=== PATIENT | male | born 1955 | race American Indian/Alaskan Native ===

== ENCOUNTER 2020-02-16 19:39 | Inpatient (IN) | payer MEDICARE, OTHER ==
[2020-02-16] MEDS ORDERED: ASPIRIN 81 MG TAB CHEW PO ONE (21:02)
--- NOTE | 2020-02-16 21:08 | Emergency Department Report ---
ED Palpitations HPI - General Chief Complaint: Dizziness Stated Complaint: DIZZINESS Time Seen by Provider: 02/16/20 20:29 Source: patient, EMS Mode of arrival: Stretcher Limitations: No Limitations - History of Present Illness Initial Comments: Patient is 64 years old male with history of congestive heart failure, defibrillator, hypertension and diabetes. Patient presented to the ER via EMS from home after patient stated that he had an episode of palpitation and his defibrillator discharge and shocked him. Patient stated that when he started having the palpitation he became dizzy and shortness of breath. Patient stated that defibrillator was placed last year by Dr. Srinivasan. Patient is currently denying any chest pain, shortness of breath or palpitation. Patient also denied any fever or chills no history of drug abuse. MD Complaint: rapid heart beat, palpitations -: Sudden Context: occured during rest, AICD discharge Arrythmia History: AICD Associated Symptoms: shortness of breath, syncope - Related Data Home Medications Medication Instructions Recorded Confirmed Last Taken amLODIPine 10 mg PO DAILY 06/25/13 04/12/15 06/25/13 Aspirin [Aspirin BABY CHEW TAB] 81 mg PO QDAY 11/09/13 04/12/15 Unknown Colchicine 0.6 mg PO DAILY PRN 11/09/13 04/12/15 Unknown Ferrous Sulfate [Feosol 325mg] 65 mg PO TID 11/09/13 04/12/15 Unknown Furosemide [Lasix] 40 mg PO BID 11/09/13 04/12/15 Unknown lisinopriL [Zestril TAB] 20 mg PO QDAY 11/09/13 04/12/15 Unknown Previous Rx's Medication Instructions Recorded Last Taken Type Insulin Glargine,Hum.rec.anlog 15 unit SQ QHS #30 ml 11/13/13 Unknown Rx [Lantus Solostar] metFORMIN [Glucophage] 500 mg PO BIDDIAB #60 tablet 11/13/13 Unknown Rx Benzonatate [Tessalon Perles] 200 mg PO Q8HR PRN #20 capsule 04/14/15 Unknown Rx Dabigatran [Pradaxa] 150 mg PO BID #60 capsule 04/14/15 Unknown Rx carvediloL [Coreg] 25 mg PO Q12HR #60 tablet 04/14/15 Unknown Rx levoFLOXacin [Levaquin TAB] 500 mg PO QDAY #4 tablet 04/14/15 Unknown Rx Allergies Allergy/AdvReac Type Severity Reaction Status Date / Time No Known Allergies Allergy Verified 04/12/15 08:45 ED Review of Systems ROS: Stated complaint: DIZZINESS Other details as noted in HPI Comment: All other systems reviewed and negative Constitutional: denies: chills, fever Respiratory: shortness of breath. denies: cough, SOB with exertion, wheezing Cardiovascular: palpitations. denies: chest pain, dyspnea on exertion, orthopnea Gastrointestinal: denies: abdominal pain, nausea, vomiting Musculoskeletal: denies: back pain Neurological: denies: headache, weakness, numbness, paresthesias, confusion, abnormal gait ED Past Medical Hx - Past Medical History Previous Medical History?: Yes Hx Hypertension: Yes (coreg, lisinopril) Hx Heart Attack/AMI: No Hx Congestive Heart Failure: Yes Hx Diabetes: Yes (NEW [place]ET) Hx Asthma: No Hx COPD: No - Surgical History Past Surgical History?: Yes Hx Open Heart Surgery: Yes Hx Appendectomy: Yes - Social History Smoking Status: Never Smoker Substance Use Type: None - Medications Home Medications: Home Medications Medication Instructions Recorded Confirmed Last Taken Type amLODIPine 10 mg PO DAILY 06/25/13 04/12/15 06/25/13 History Aspirin [Aspirin BABY CHEW TAB] 81 mg PO QDAY 11/09/13 04/12/15 Unknown History Colchicine 0.6 mg PO DAILY PRN 11/09/13 04/12/15 Unknown History Ferrous Sulfate [Feosol 325mg] 65 mg PO TID 11/09/13 04/12/15 Unknown History Furosemide [Lasix] 40 mg PO BID 11/09/13 04/12/15 Unknown History lisinopriL [Zestril TAB] 20 mg PO QDAY 11/09/13 04/12/15 Unknown History Insulin Glargine,Hum.rec.anlog 15 unit SQ QHS #30 ml 11/13/13 04/12/15 Unknown Rx [Lantus Solostar] metFORMIN [Glucophage] 500 mg PO BIDDIAB #60 tablet 11/13/13 04/12/15 Unknown Rx Benzonatate [Tessalon Perles] 200 mg PO Q8HR PRN #20 capsule 04/14/15 Unknown Rx Dabigatran [Pradaxa] 150 mg PO BID #60 capsule 04/14/15 Unknown Rx carvediloL [Coreg] 25 mg PO Q12HR #60 tablet 04/14/15 Unknown Rx levoFLOXacin [Levaquin TAB] 500 mg PO QDAY #4 tablet 04/14/15 Unknown Rx ED Physical Exam - General Limitations: No Limitations General appearance: alert, in no apparent distress - Head Head exam: Present: atraumatic, normocephalic, normal inspection - Eye Eye exam: Present: normal appearance - ENT ENT exam: Present: normal exam, normal orophraynx, mucous membranes moist - Neck Neck exam: Present: normal inspection, full ROM. Absent: tenderness, meningismus, lymphadenopathy, thyromegaly - Respiratory Respiratory exam: Present: normal lung sounds bilaterally - Cardiovascular Cardiovascular Exam: Present: irregular rhythm, normal heart sounds - GI/Abdominal GI/Abdominal exam: Present: soft, normal bowel sounds. Absent: distended, tenderness, guarding, rebound, rigid, organomegaly, mass, bruit, pulsatile mass, hernia - Back Exam Back exam: Present: normal inspection, full ROM. Absent: CVA tenderness (R), CVA tenderness (L) - Neurological Exam Neurological exam: Present: alert, oriented X3, CN II-XII intact, normal gait, reflexes normal - Psychiatric Psychiatric exam: Present: normal mood - Skin Skin exam: Present: warm, intact, normal color ED Course Vital Signs 02/16/20 19:55 Temperature 98.6 F Pulse Rate 92 H Respiratory 14 Rate Blood Pressure 154/96 [Left] O2 Sat by Pulse 99 Oximetry ED Medical Decision Making - Lab Data Result diagrams: 02/16/20 21:18 02/16/20 21:17 - EKG Data -: EKG Interpreted by Nj - EKG Data 02/16/20 22:25 Atrial fibrillation with a heart rate of 82 - Radiology Data Radiology results: report reviewed - Medical Decision Making Patient is 64 years old male with history of congestive heart failure, defibrillator, hypertension and diabetes. Patient presented to the ER via EMS from home after patient stated that he had an episode of palpitation and his defibrillator discharge and shocked him. Patient stated that when he started having the palpitation he became dizzy and shortness of breath. Patient stated that defibrillator was placed last year by Dr. Srinivasan. Patient is currently denying any chest pain, shortness of breath or palpitation. Patient also denied any fever or chills no history of drug abuse. Patient remained stable in the ER. EKG is unremarkable except for atrial fibrillation which is chronic. Labs reviewed and is unremarkable except for elevated Bnp. I discussed the patient with Dr. Carrasquillo, steward/stewardess tourist class on-call and he advised to start patient on amiodarone drip and he will be following up with the patient. I discussed the patient with Dr. Elkins, he agreed to admit the patient to medical service for further management. Critical Care Time: Yes Critical care time in (mins) excluding proc time.: 30 Critical care attestation.: If time is entered above; I have spent that time in minutes in the direct care of this critically ill patient, excluding procedure time. ED Disposition Clinical Impression: Defibrillator discharge, Palpitation Disposition: -09 OP ADMIT IP TO THIS HOSP Is pt being admited?: Yes Condition: Stable Referrals: PRIMARY CARE, [Primary Care Provider] - 3-5 Days
[2020-02-16 21:38] LABS: Basophils % (Auto) 0.5 % (0.0-1.8); Eosinophils % (Auto) 0.4 % (0.0-4.3); Hemoglobin 13.6 gm/dl (11.8-15.2); Lymphocytes # (Auto) 0.6 K/mm3 (1.2-5.4); Lymphocytes % (Auto) 11.1 % (13.4-35.0); Mean Corpuscular HGB Conc 33 % (32-34); Mean Corpuscular Volume 88 fl (84-94); Monocytes # (Auto) 0.5 K/mm3 (0.0-0.8); Monocytes % (Auto) 8.3 % (0.0-7.3); Platelet Count 127 K/mm3 (140-440); Red Blood Count 4.63 M/mm3 (3.65-5.03); Red Cell Distribution Width 14.9 % (13.2-15.2)
[2020-02-16 21:48] LABS: INR 1.32 (0.87-1.13)
[2020-02-16 21:52] LABS: Albumin 4.2 g/dL (3.9-5); Bilirubin,Direct 0.4 mg/dL (0-0.2)
[2020-02-16 21:54] LABS: BUN/Creatinine Ratio 16; Blood Urea Nitrogen 18 mg/dL (9-20); Calcium 9.3 mg/dL (8.4-10.2); Hemolysis Index 9
--- NOTE | 2020-02-16 22:08 | XRay Report ---
CHEST 1 VIEW INDICATION / CLINICAL INFORMATION: MAIN. Chest pain COMPARISON: 04/12/2015 FINDINGS: SUPPORT DEVICES: Left chest wall cardiac device with its tip projecting over the right ventricle. HEART / MEDIASTINUM: Enlarged cardiac silhouette Sternotomy wires are stable. LUNGS / PLEURA: Mild central pulmonary vascular congestion. Left lung base atelectasis. No confluent infiltrate. No pneumothorax. ADDITIONAL FINDINGS: Elevation of the left diaphragm. IMPRESSION: 1. Interval placement of left chest wall cardiac device with its tip over the right ventricle. 2. Stable cardiac enlargement with central pulmonary vascular congestion. 3. Interval development of left lung base atelectasis and elevation of left hemidiaphragm. Signer Name: Ramiro Ro MD Signed: 02/16/2020 10:03 PM Workstation Name: [id number]
[2020-02-16] MEDS ORDERED: AMIODARONE 900 MG in DEXTROSE 5% IN WATER 482 ML IV SCH (23:00)
[2020-02-16] MEDS ORDERED: ACETAMINOPHEN 325 MG TAB PO PRN (23:41)
[2020-02-17] MEDS ORDERED: HEPARIN 5,000 UNIT/1 ML VIAL ONE ×2 (00:29→10:10)
[2020-02-17] MEDS: HEPARIN 5,000 UNIT/1 ML VIAL SUB-Q SCH ×3 (00:31→22:59)
[2020-02-17 01:28] LABS: Creatine Kinase MB 2.8 ng/mL (0.0-4.0)
--- NOTE | 2020-02-17 04:42 | History and Physical Report ---
History of Present Illness Date of examination: 02/16/20 Date of admission: 02/16/20 22:19 Chief complaint: PALPITAION AND FIRING OF DEFIBRILATOR History of present illness: 64 year old male who presented to the ER following the firing of his defibrilator after he had palpitation with dizziness, shortness of breath and near syncope. There is no chest pain , fever, chills, cough ,nausea or vomiting. At the time patient reached the ED symptom stopped Past History Past Medical History: diabetes, heart failure, hypertension Past Surgical History: appendectomy, Other (OPEN HEART SURGERY, DEFIBRILLATOR PLACEMENT) Social history: no significant social history Family history: no significant family history Medications and Allergies Allergies Allergy/AdvReac Type Severity Reaction Status Date / Time No Known Allergies Allergy Verified 04/12/15 08:45 Home Medications Medication Instructions Recorded Confirmed Last Taken Type Aspirin [Aspirin BABY CHEW TAB] 81 mg PO QDAY 02/16/20 02/16/20 Unknown History Clopidogrel [Plavix] 75 mg PO QDAY 02/16/20 02/16/20 Unknown History Colchicine 0.6 mg PO QDAY 02/16/20 02/16/20 Unknown History Furosemide [Lasix TAB] 40 mg PO QDAY 02/16/20 02/16/20 Unknown History Losartan [Cozaar] 50 mg PO QDAY 02/16/20 02/16/20 Unknown History Potassium Chloride 10 meq PO QDAY 02/16/20 02/16/20 Unknown History Warfarin [Coumadin] 5 mg PO QDAY 02/16/20 02/16/20 Unknown History amLODIPine [Norvasc] 5 mg PO DAILY 02/16/20 02/16/20 Unknown History carvediloL [Coreg] 25 mg PO QDAY 02/16/20 02/16/20 Unknown History Active Meds: Active Medications Acetaminophen (Tylenol) 650 mg PO Q4H PRN PRN Reason: Fever >101 Heparin Sodium (Porcine) (Heparin) 5,000 unit SUB-Q Q12HR [facility] Last Admin: 02/17/20 00:31 Dose: 5,000 unit Documented by: Amiodarone HCl 900 mg/ (Dextrose) 500 mls @ 33.333 mls/hr IV DIRECT [facility]; Protocol Last Admin: 02/16/20 23:25 Dose: 1 mg/min, 33.333 mls/hr Documented by: Review of Systems Constitutional: weakness, malaise, no weight loss, no weight gain, no fever, no chills, no sweats, no night sweats, no fatigue Eyes: bilateral: other (NO BILATERAL EYE SYMPTOM) Ears, nose, mouth and throat: no ear pain, no ear discharge Cardiovascular: palpitations, lightheadedness, other (NEAR SYNCOPE), no chest pain, no orthopnea, no rapid/irregular heart beat, no edema Respiratory: shortness of breath, no cough, no hemoptysis, no dyspnea on exertion, no congestion, no wheezing Gastrointestinal: no abdominal pain, no nausea, no vomiting, no diarrhea, no constipation, no change in bowel habits, no hematemesis, no melena, no hematochezia Genitourinary Male: no hematuria, no urinary frequency Rectal: no pain, no itching Musculoskeletal: no neck stiffness, no neck pain, no shooting arm pain, no arm numbness/tingling, no low back pain, no shooting leg pain, no leg numbness/tingling, no hot joints, no muscle weakness, no muscle cramps Integumentary: no rash, no pruritis, no redness, no sores, no wounds, no jaundice, no boils, no lesions, no darkening of skin, no depigmentation, no acne, no striae Neurological: weakness, no parathesias, no numbness, no seizures, no syncope, no tremors, no ataxia, no vertigo, no headaches, no convulsions, no aphasia, no change in speech, no change in mentation, no confusion, no memory loss, no motor disturbance Psychiatric: no memory loss, no insomnia, no hypersomnia, no change in appetite, no suicidal ideation, no disorientation, no hallucinations Endocrine: no polyphagia, no excessive thirst, no polydipsia, no polyuria, no nocturia, no excessive sweating, no flushing, no palpatations Hematologic/Lymphatic: no easy bruising, no easy bleeding, no lymphadenopathy, no lymphedema Exam - Constitutional Vitals: Temp Pulse Resp BP Pulse Ox 98.6 F 71 23 136/87 94 02/16/20 19:55 02/17/20 04:00 02/17/20 04:00 02/17/20 04:00 02/17/20 04:00 General appearance: Present: mild distress - EENT Eyes: Present: PERRL, EOM intact ENT: hearing intact, clear oral mucosa, dentition normal - Neck Neck: Present: supple, normal ROM - Respiratory Respiratory effort: normal - Cardiovascular Rhythm: regular Heart Sounds: Present: S1 & S2. Absent: gallop, systolic murmur, diastolic murmur, click - Extremities Extremities: no ischemia, No edema Peripheral Pulses: within normal limits - Abdominal General gastrointestinal: Present: soft, non-tender. Absent: tender, non- distended, distended, rigid, hepatomegaly, splenomegaly Male genitourinary: Present: deferred - Rectal Rectal Exam: deferred - Integumentary Integumentary: Present: clear, warm, dry. Absent: jaundice - Musculoskeletal Musculoskeletal: strength equal bilaterally - Psychiatric Psychiatric: appropriate mood/affect HEART Score - HEART Score Age: 45-65 Risk factors: 1-2 risk factors Troponin: Troponin T < 0.010 ng/mL (0.00-0.029) 02/17/20 03:57 Troponin: < normal limit - Critical Actions Critical Actions: 0-3 pts:0.9-1.7%risk of adverse cardiac event.Candidate for discharge Results - Labs CBC & Chem 7: 02/16/20 21:18 02/16/20 21:17 Labs: Laboratory Last Values WBC 5.7 K/mm3 (4.5-11.0) 02/16/20 21:18 RBC 4.63 M/mm3 (3.65-5.03) 02/16/20 21:18 Hgb 13.6 gm/dl (11.8-15.2) 02/16/20 21:18 Hct 41.0 % (35.5-45.6) 02/16/20 21:18 MCV 88 fl (84-94) 02/16/20 21:18 MCH 29 pg (28-32) 02/16/20 21:18 MCHC 33 % (32-34) 02/16/20 21:18 RDW 14.9 % (13.2-15.2) 02/16/20 21:18 Plt Count 127 K/mm3 (140-440) L 02/16/20 21:18 Lymph % (Auto) 11.1 % (13.4-35.0) L 02/16/20 21:18 [place] % (Auto) 8.3 % (0.0-7.3) H 02/16/20 21:18 Eos % (Auto) 0.4 % (0.0-4.3) 02/16/20 21:18 Baso % (Auto) 0.5 % (0.0-1.8) 02/16/20 21:18 Lymph # (Auto) 0.6 K/mm3 (1.2-5.4) L 02/16/20 21:18 [place] # (Auto) 0.5 K/mm3 (0.0-0.8) 02/16/20 21:18 Eos # (Auto) 0.0 K/mm3 (0.0-0.4) 02/16/20 21:18 Baso # (Auto) 0.0 K/mm3 (0.0-0.1) 02/16/20 21:18 Seg Neutrophils % 79.7 % (40.0-70.0) H 02/16/20 21:18 Seg Neutrophils # 4.5 K/mm3 (1.8-7.7) 02/16/20 21:18 PT 16.7 Sec. (12.2-14.9) H 02/16/20 21:17 INR 1.32 (0.87-1.13) H 02/16/20 21:17 APTT 39.0 Sec. (24.2-36.6) H 02/16/20 21:17 Sodium 139 mmol/L (137-145) 02/16/20 21:17 Potassium 4.0 mmol/L (3.6-5.0) 02/16/20 21:17 Chloride 102.7 mmol/L (98-107) 02/16/20 21:17 Carbon Dioxide 27 mmol/L (22-30) 02/16/20 21:17 Anion Gap 13 mmol/L 02/16/20 21:17 BUN 18 mg/dL (9-20) 02/16/20 21:17 Creatinine 1.1 mg/dL (0.8-1.3) 02/16/20 21:17 Estimated GFR > 60 ml/min 02/16/20 21:17 BUN/Creatinine Ratio 16 % 02/16/20 21:17 Glucose 115 mg/dL (75-100) H 10/20/20 21:17 Calcium 9.3 mg/dL (8.4-10.2) 02/16/20 21:17 Magnesium 2.00 mg/dL (1.7-2.3) 02/16/20 21:17 Total Bilirubin 2.00 mg/dL (0.1-1.2) H 02/16/20 21:17 Direct Bilirubin 0.4 mg/dL (0-0.2) H 02/16/20 21:17 Indirect Bilirubin 1.6 mg/dL 02/16/20 21:17 AST 24 units/L (5-40) 02/16/20 21:17 ALT 26 units/L (7-56) 02/16/20 21:17 Alkaline Phosphatase 134 units/L (35-129) H 02/16/20 21:17 Total Creatine Kinase 138 units/L (55-170) 02/17/20 00:21 CK-MB (CK-2) 2.8 ng/mL (0.0-4.0) 02/17/20 00:21 CK-MB (CK-2) Rel Index 2.0 (0-4) 02/17/20 00:21 Troponin T < 0.010 ng/mL (0.00-0.029) 02/17/20 03:57 NT-Pro-B Natriuret Pep 1395 pg/mL (0-900) H 02/16/20 21:17 Total Protein 7.1 g/dL (6.3-8.2) 02/16/20 21:17 Albumin 4.2 g/dL (3.9-5) 02/16/20 21:17 Albumin/Globulin Ratio 1.4 % 02/16/20 21:17 TSH 1.570 mlU/mL (0.270-4.200) 02/16/20 21:17 Assessment and Plan - Patient Problems (1) Dizziness Current Visit: Yes Status: Acute Plan to address problem: 1 NEURO CHECKS (2) Defibrillator discharge Current Visit: Yes Status: Acute Plan to address problem: 1. CARDIOLOGY CONSULT 2, ECHOCARDIOGRAM 3. SERIAL TROPONIN LEVEL (3) Palpitation Current Visit: Yes Status: Acute Plan to address problem: 1. TELEMETRY MORNITORING 2. SERIAL TROPONIN LEVEL 3. CARDIOLOGY CONSULT
[2020-02-17 06:35] LABS: Creatine Kinase MB 2.6 ng/mL (0.0-4.0)
--- NOTE | 2020-02-17 11:12 | Consultation ---
History of Present Illness Consult date: 02/17/20 Requesting physician: URMILA RODRIGUEZ Consult reason: other (AICD shock) History of present illness: The patient is a 64 year old male with a past medical history of CAD s/p CABG (2009), bioprosthetic MV replacement (2019 s/p multiple repairs), ICMP, AICD in situ, atrial fibrillation, anticoagulated with coumadin, HTN, HLP, PAD, DM. He is followed in our office by Dr. Srinivasan. He presented for evaluation following AICD shock. He states that he was standing in his kitchen about to cook a meal when he noted the onset of lightheadedness and then received an AICD shock. The shock knocked him down to the ground, however, pt denies any loss of consciousness. He denies any chest pain, palpitations, SOB, n/v, diaphoresis or syncope. He reports that he was feeling well until the AICD shock yesterday. tte done 03/2020 showed EF 20-25%, dilated LA, mod TR, normally functioning bioprosthetic MV, no significant valvular abnormalities, pacing electrode in right sided chambers. lexiscan MPI stress test done 02/2018 showed small amount of ischemia in LAD territory, EF 31%. Past History Past Medical History: diabetes, heart failure, hypertension Past Surgical History: appendectomy, Other (OPEN HEART SURGERY, DEFIBRILLATOR PLACEMENT) Social history: no significant social history Family history: no significant family history Medications and Allergies Allergies Allergy/AdvReac Type Severity Reaction Status Date / Time No Known Allergies Allergy Verified 04/12/15 08:45 Home Medications Medication Instructions Recorded Confirmed Last Taken Type Aspirin [Aspirin BABY CHEW TAB] 81 mg PO QDAY 02/16/20 02/16/20 Unknown History Clopidogrel [Plavix] 75 mg PO QDAY 02/16/20 02/16/20 Unknown History Colchicine 0.6 mg PO QDAY 02/16/20 02/16/20 Unknown History Furosemide [Lasix TAB] 40 mg PO QDAY 02/16/20 02/16/20 Unknown History Losartan [Cozaar] 50 mg PO QDAY 02/16/20 02/16/20 Unknown History Potassium Chloride 10 meq PO QDAY 02/16/20 02/16/20 Unknown History Warfarin [Coumadin] 5 mg PO QDAY 02/16/20 02/16/20 Unknown History amLODIPine [Norvasc] 5 mg PO DAILY 02/16/20 02/16/20 Unknown History carvediloL [Coreg] 25 mg PO QDAY 02/16/20 02/16/20 Unknown History Active Meds: Active Medications Acetaminophen (Tylenol) 650 mg PO Q4H PRN PRN Reason: Fever >101 Heparin Sodium (Porcine) (Heparin) 5,000 unit SUB-Q Q12HR [facility] Last Admin: 02/17/20 10:17 Dose: 5,000 unit Documented by: Metoprolol Succinate (Metoprolol Xl) 100 mg PO QDAY [facility] Review of Systems Constitutional: no weight loss, no weight gain, no fever, no chills, no sweats Ears, nose, mouth and throat: no ear pain, no nose pain, no sinus pressure, no sinus pain Cardiovascular: lightheadedness, no chest pain, no orthopnea, no palpitations, no rapid/irregular heart beat, no edema, no syncope, no shortness of breath, no dyspnea on exertion, no leg edema Respiratory: no cough, no shortness of breath, no dyspnea on exertion, no congestion, no wheezing, no pain on inspiration Gastrointestinal: no abdominal pain, no nausea, no vomiting, no diarrhea, no c onstipation, no change in bowel habits Genitourinary Male: no dysuria, no hematuria, no flank pain, no discharge, no urinary frequency, no urinary hesitancy Musculoskeletal: no neck stiffness, no neck pain, no shooting arm pain, no arm numbness/tingling, no low back pain, no shooting leg pain Integumentary: no pruritis, no redness, no sores, no wounds Neurological: no head injury, no paralysis, no weakness, no parathesias, no numbness, no tingling, no seizures, no syncope Psychiatric: no anxiety Endocrine: no cold intolerance, no heat intolerance Hematologic/Lymphatic: no easy bruising, no easy bleeding Allergic/Immunologic: no urticaria Physical Examination Vital Signs Temp Pulse Resp BP Pulse Ox 98.6 F 92 H 14 154/96 99 02/16/20 19:55 02/16/20 19:55 02/16/20 19:55 02/16/20 19:55 02/16/20 19:55 General appearance: no acute distress HEENT: Positive: PERRL, Normocephaly, Mucus Membranes Moist Neck: Positive: neck supple, trachea midline Cardiac: Positive: irregularly irregular, S1/S2 Lungs: Positive: Decreased Breath Sounds Neuro: Positive: Grossly Intact Abdomen: Negative: Tender Skin: Negative: Rash Musculoskeletal: No Pain Extremities: Absent: edema Results 02/16/20 21:18 02/16/20 21:17 Cardiac Enzymes 02/16/20 02/17/20 02/17/20 Range/Units 21:17 00:21 06:04 AST 24 (5-40) units/L CK-MB (CK-2) 2.8 2.6 (0.0-4.0) ng/mL Coagulation 02/16/20 Range/Units 21:17 PT 16.7 H (12.2-14.9) Sec. INR 1.32 H (0.87-1.13) APTT 39.0 H (24.2-36.6) Sec. CBC 02/16/20 Range/Units 21:18 WBC 5.7 (4.5-11.0) K/mm3 RBC 4.63 (3.65-5.03) M/mm3 Hgb 13.6 (11.8-15.2) gm/dl Hct 41.0 (35.5-45.6) % Plt Count 127 L (140-440) K/mm3 Lymph # (Auto) 0.6 L (1.2-5.4) K/mm3 [place] # (Auto) 0.5 (0.0-0.8) K/mm3 Eos # (Auto) 0.0 (0.0-0.4) K/mm3 Baso # (Auto) 0.0 (0.0-0.1) K/mm3 Comprehensive Metabolic Panel 02/16/20 02/16/20 Range/Units 21:17 21:17 Sodium 139 (137-145) mmol/L Potassium 4.0 (3.6-5.0) mmol/L Chloride 102.7 (98-107) mmol/L Carbon Dioxide 27 (22-30) mmol/L BUN 18 (9-20) mg/dL Creatinine 1.1 (0.8-1.3) mg/dL Glucose 115 H (75-100) mg/dL Calcium 9.3 (8.4-10.2) mg/dL Direct Bilirubin 0.4 H (0-0.2) mg/dL Indirect Bilirubin 1.6 mg/dL AST 24 (5-40) units/L ALT 26 (7-56) units/L Alkaline Phosphatase 134 H (35-129) units/L Total Protein 7.1 (6.3-8.2) g/dL Albumin 4.2 (3.9-5) g/dL - Imaging and Cardiology Echo: report reviewed (03/2020 showed EF 20-25%, dilated LA, mod TR, normally functioning bioprosthetic MV, no significant valvular abnormalities, pacing electrode in right sided chambers. ) EKG: report reviewed, image reviewed EKG interpretations - Telemetry EKG Rhythm: Atrial Fibrillation - EKG Supraventricular dysrhythmia: atrial fibrillation Assessment and Plan Device interrogation revealed one episode of monomorphic ventricular tachycardia which was appropriately treated with AICD shock. Pt currently in AFib with CVR. D/c home coreg and initiate Toprol XL for more adequate HR and arrhythmia control. Resume other home cardiac medications, including coumadin with tx INR 2-3. Cont observation on telemetry overnight. Anticipated d/c in AM pending pt remain s clinically stable overnight. Consider repeat ischemic evaluation as OP - D/w pt's primary staffing clerk, Dr. Srinivasan. Will follow. The patient has been seen in conjunction with Dr. Guardado who agrees with the assessment and plan of care. - Patient Problems (1) Defibrillator discharge Current Visit: Yes Status: Acute (2) Ischemic cardiomyopathy Current Visit: Yes Status: Chronic (3) Automatic implantable cardioverter-defibrillator in situ Current Visit: Yes Status: Chronic (4) CAD (coronary artery disease) Current Visit: Yes Status: Chronic (5) History of coronary artery bypass graft Current Visit: Yes Status: Chronic (6) H/O mitral valve replacement Current Visit: Yes Status: Chronic (7) Atrial fibrillation Current Visit: Yes Status: Chronic (8) Anticoagulated on Coumadin Current Visit: Yes Status: Chronic (9) Hypertension Current Visit: No Status: Chronic Qualifiers: Hypertension type: essential hypertension Qualified Code(s): I10 - Essential (primary) hypertension (10) Diabetes Current Visit: Yes Status: Chronic (11) PVD (peripheral vascular disease) Current Visit: Yes Status: Chronic
[2020-02-17] MEDS ORDERED: METOPROLOL SUCCINATE XL 100 MG TAB PO ONE (13:55)
[2020-02-17] MEDS: METOPROLOL SUCCINATE XL 100 MG TAB PO SCH (13:57)
[2020-02-17] MEDS ORDERED: WARFARIN 5 MG TAB PO SCH (17:00)
--- NOTE | 2020-02-17 17:27 | Progress Note ---
Assessment and Plan The patient is a 64 year old male with a past medical history of CAD s/p CABG (2009), bioprosthetic MV replacement (2019 s/p multiple repairs), ICMP, AICD in situ, atrial fibrillation, anticoagulated with coumadin, HTN, HLP, PAD, DM presented for evaluation following AICD shock. The shock knocked him down to the ground, however, pt denies any loss of consciousness. --Defibrillator discharge --Ischemic cardiomyopathy, Chronic , EF 20-25% --Automatic implantable cardioverter-defibrillator in situ --CAD (coronary artery disease) s/p coronary artery bypass graft --H/O mitral valve replacement --Atrial fibrillation, Anticoagulated on Coumadin --Hypertension --Diabetes --PVD (peripheral vascular disease) --left knee pain Plan: -resume home meds -Device interrogation revealed one episode of monomorphic ventricular tachycardia which was appropriately treated with AICD shock. - initiate Toprol XL , Resume coumadin Cont observation on telemetry overnight. Anticipated d/c in AM pending pt remains clinically stable overnight. order left knee xry Subjective Date of service: 02/17/20 Interval history: Patient seen and examined denies chest pain or SOB c/o left knee pain Objective - Exam Narrative Exam: General appearance: no acute distress HEENT: Positive: PERRL, Normocephaly, Mucus Membranes Moist Neck: Positive: neck supple, trachea midline Cardiac: Positive: irregularly irregular, S1/S2 Lungs: Positive: Decreased Breath Sounds Neuro: Positive: Grossly Intact Abdomen: Negative: Tender Skin: Negative: Rash Musculoskeletal: No erythrema Extremities: Absent: edema - Constitutional Vitals: Vital Signs - 12hr 02/17/20 02/17/20 02/17/20 05:45 06:46 07:00 Temperature Pulse Rate 73 62 63 Pulse Rate [ Apical] Pulse Rate [ From Monitor] Respiratory 21 19 17 Rate Blood Pressure 121/73 131/77 137/70 O2 Sat by Pulse 95 92 97 Oximetry 02/17/20 02/17/20 02/17/20 07:15 07:30 07:46 Temperature Pulse Rate 57 L 58 L 57 L Pulse Rate [ Apical] Pulse Rate [ From Monitor] Respiratory 17 14 19 Rate Blood Pressure 128/75 133/80 133/73 O2 Sat by Pulse 94 94 Oximetry 02/17/20 02/17/20 02/17/20 08:00 08:15 08:30 Temperature Pulse Rate 63 69 71 Pulse Rate [ Apical] Pulse Rate [ From Monitor] Respiratory 18 20 20 Rate Blood Pressure 139/80 141/79 130/85 O2 Sat by Pulse 96 95 95 Oximetry 02/17/20 02/17/20 02/17/20 08:46 09:00 09:15 Temperature Pulse Rate 63 Pulse Rate [ Apical] Pulse Rate [ From Monitor] Respiratory 17 Rate Blood Pressure 145/84 130/85 149/91 O2 Sat by Pulse 96 97 95 Oximetry 02/17/20 02/17/20 02/17/20 09:30 09:45 10:00 Temperature Pulse Rate 73 72 66 Pulse Rate [ Apical] Pulse Rate [ From Monitor] Respiratory 21 22 18 Rate Blood Pressure 147/80 137/85 147/78 O2 Sat by Pulse 98 97 94 Oximetry 02/17/20 02/17/20 02/17/20 10:15 10:30 10:46 Temperature Pulse Rate 69 71 60 Pulse Rate [ Apical] Pulse Rate [ From Monitor] Respiratory 21 16 20 Rate Blood Pressure 136/81 136/81 145/69 O2 Sat by Pulse 95 96 98 Oximetry 02/17/20 02/17/20 02/17/20 11:00 11:15 11:30 Temperature Pulse Rate 62 63 63 Pulse Rate [ Apical] Pulse Rate [ From Monitor] Respiratory 20 20 18 Rate Blood Pressure 131/77 124/72 131/70 O2 Sat by Pulse 97 97 96 Oximetry 02/17/20 02/17/20 02/17/20 11:46 12:00 12:15 Temperature Pulse Rate 61 57 L 65 Pulse Rate [ Apical] Pulse Rate [ From Monitor] Respiratory 18 18 18 Rate Blood Pressure 130/73 134/84 125/77 O2 Sat by Pulse 94 96 97 Oximetry 02/17/20 02/17/20 02/17/20 12:30 12:45 13:00 Temperature Pulse Rate 59 L 68 72 Pulse Rate [ Apical] Pulse Rate [ From Monitor] Respiratory 18 22 13 Rate Blood Pressure 136/83 139/81 145/91 O2 Sat by Pulse 97 95 94 Oximetry 02/17/20 02/17/20 02/17/20 13:15 13:30 13:46 Temperature Pulse Rate 63 78 73 Pulse Rate [ Apical] Pulse Rate [ From Monitor] Respiratory 17 19 22 Rate Blood Pressure 145/92 145/92 117/76 O2 Sat by Pulse 97 96 97 Oximetry 02/17/20 02/17/20 02/17/20 13:57 14:00 14:16 Temperature Pulse Rate 78 85 Pulse Rate [ Apical] Pulse Rate [ From Monitor] Respiratory 18 17 Rate Blood Pressure 117/76 117/76 156/83 O2 Sat by Pulse 86 97 Oximetry 02/17/20 02/17/20 02/17/20 14:30 14:45 15:00 Temperature Pulse Rate 61 70 72 Pulse Rate [ Apical] Pulse Rate [ From Monitor] Respiratory 14 22 23 Rate Blood Pressure 151/85 147/80 147/83 O2 Sat by Pulse 95 94 97 Oximetry 02/17/20 02/17/20 15:35 16:00 Temperature 97.9 F Pulse Rate 76 Pulse Rate [ 74 Apical] Pulse Rate [ 74 From Monitor] Respiratory 20 Rate Blood Pressure 171/91 O2 Sat by Pulse 98 99 Oximetry - Labs CBC & Chem 7: 02/16/20 21:18 02/16/20 21:17 Labs: Abnormal lab results 02/16/20 02/16/20 02/16/20 Range/Units 21:17 21:17 21:17 Plt Count (140-440) K/mm3 Lymph % (Auto) (13.4-35.0) % Coke % (Auto) (0.0-7.3) % Lymph # (Auto) (1.2-5.4) K/mm3 Seg Neutrophils % (40.0-70.0) % PT 16.7 H (12.2-14.9) Sec. INR 1.32 H (0.87-1.13) APTT 39.0 H (24.2-36.6) Sec. Glucose 115 H (75-100) mg/dL Total Bilirubin 2.00 H (0.1-1.2) mg/dL Direct Bilirubin 0.4 H (0-0.2) mg/dL Alkaline Phosphatase 134 H (35-129) units/L NT-Pro-B Natriuret Pep 1395 H (0-900) pg/mL 02/16/20 Range/Units 21:18 Plt Count 127 L (140-440) K/mm3 Lymph % (Auto) 11.1 L (13.4-35.0) % Coke % (Auto) 8.3 H (0.0-7.3) % Lymph # (Auto) 0.6 L (1.2-5.4) K/mm3 Seg Neutrophils % 79.7 H (40.0-70.0) % PT (12.2-14.9) Sec. INR (0.87-1.13) APTT (24.2-36.6) Sec. Glucose (75-100) mg/dL Total Bilirubin (0.1-1.2) mg/dL Direct Bilirubin (0-0.2) mg/dL Alkaline Phosphatase (35-129) units/L NT-Pro-B Natriuret Pep (0-900) pg/mL HEART Score - HEART Score Age: 45-65 Risk factors: 1-2 risk factors Troponin: Troponin T < 0.010 ng/mL (0.00-0.029) 02/17/20 06:04 Troponin: < normal limit - Critical Actions Critical Actions: 0-3 pts:0.9-1.7%risk of adverse cardiac event.Candidate for discharge
[2020-02-17] MEDS ORDERED: oxyCODONE /ACETAMINOPHEN 5-325MG TAB PO PRN (22:41)
[2020-02-17] MEDS ORDERED: LOSARTAN 50 MG TAB PO SCH (22:50)
[2020-02-17] MEDS ORDERED: amLODIPine 5 MG TAB PO SCH (22:50)
[2020-02-17] MEDS: MORPHINE 2 MG/1 ML INJ IV PRN (22:59)
[2020-02-17] MEDS: LOSARTAN 50 MG TAB PO SCH (23:00)
--- NOTE | 2020-02-18 08:49 | XRay Report ---
LEFT KNEE 2 VIEW(S) INDICATION / CLINICAL INFORMATION: MAIN COMPARISON: None available. FINDINGS: BONES / JOINT(S): No acute fracture or subluxation. Tricompartmental degenerative change with mild nabeel int space narrowing. Moderate-sized effusion. SOFT TISSUES: No significant abnormality. ADDITIONAL FINDINGS: None. Signer Name: Fernando Barnett MD Signed: 02/18/2020 8:44 AM Workstation Name: [id number]
[2020-02-18 09:10] LABS: INR 1.38 (0.87-1.13)
[2020-02-18] MEDS: METOPROLOL SUCCINATE XL 100 MG TAB PO SCH (09:53)
[2020-02-18] MEDS: HEPARIN 5,000 UNIT/1 ML VIAL SUB-Q SCH (09:53)
[2020-02-18] MEDS: LOSARTAN 50 MG TAB PO SCH (09:54)
[2020-02-18] MEDS: MORPHINE 2 MG/1 ML INJ IV PRN (09:54)
[2020-02-18] MEDS ORDERED: FUROSEMIDE 40 MG TAB PO SCH (10:00)
[2020-02-18] MEDS ORDERED: ASPIRIN 81 MG TAB CHEW PO SCH (10:00)
[2020-02-18] MEDS ORDERED: amLODIPine 5 MG TAB PO SCH (10:00)
[2020-02-18] MEDS ORDERED: LOSARTAN 50 MG TAB PO SCH (10:00)
--- NOTE | 2020-02-18 10:12 | Progress Note ---
Assessment and Plan Currently stable cardiac status. Cont present cardiac management, including Toprol XL 100mg daily and coumadin with tx INR 2-3. Pt may discharge from cardiology standpoint. Consider repeat ischemic evaluation as OP - D/w pt's primary automotive collision estimator, Dr. Srinivasan. Follow up in our [place] office with Dr. Srinivasan on 02/29/2020 @ 2:15PM. The patient has been seen in conjunction with Dr. Guardado who agrees with the assessment and plan of care. - Patient Problems (1) Defibrillator discharge Current Visit: Yes Status: Acute (2) Ischemic cardiomyopathy Current Visit: Yes Status: Chronic (3) Automatic implantable cardioverter-defibrillator in situ Current Visit: Yes Status: Chronic (4) CAD (coronary artery disease) Current Visit: Yes Status: Chronic (5) History of coronary artery bypass graft Current Visit: Yes Status: Chronic (6) H/O mitral valve replacement Current Visit: Yes Status: Chronic (7) Atrial fibrillation Current Visit: Yes Status: Chronic (8) Anticoagulated on Coumadin Current Visit: Yes Status: Chronic (9) Hypertension Current Visit: No Status: Chronic Qualifiers: Hypertension type: essential hypertension Qualified Code(s): I10 - Essential (primary) hypertension (10) Diabetes Current Visit: Yes Status: Chronic (11) PVD (peripheral vascular disease) Current Visit: Yes Status: Chronic Subjective Date of service: 02/18/20 Principal diagnosis: VT Interval history: pt resting comfortably in bed, no current cardiac complaints. tele reviewed - in AFib CVR overnight with 13 beat run NSVT this AM while brushing his teeth, pt asymptomatic. Objective Last Vital Signs Temp 98.4 F 02/18/20 08:35 Pulse 78 02/18/20 09:54 Resp 16 02/18/20 09:54 BP 132/74 02/18/20 09:54 Pulse Ox 98 02/18/20 08:35 - Physical Examination General: No Apparent Distress HEENT: Positive: PERRL, Normocephaly, Mucus Membranes Moist Neck: Positive: neck supple, trachea midline Cardiac: Positive: irregularly irregular, S1/S2 Lungs: Positive: Decreased Breath Sounds Neuro: Positive: Grossly Intact Abdomen: Negative: Tender Skin: Negative: Rash Musculoskeletal: No Pain Extremities: Absent: edema - Labs and Meds Coagulation 02/18/20 Range/Units 08:07 PT 17.3 H (12.2-14.9) Sec. INR 1.38 H (0.87-1.13) - Imaging and Cardiology EKG: report reviewed, image reviewed Echo: report reviewed (03/2020 showed EF 20-25%, dilated LA, mod TR, normally functioning bioprosthetic MV, no significant valvular abnormalities, pacing electrode in right sided chambers. )
--- NOTE | 2020-02-18 10:32 | Discharge Summary ---
Providers - Providers Date of Admission: 02/16/20 22:19 Date of discharge: 02/18/20 Attending physician: RAINER CHARLES MD 02/16/20 22:11 Consult to Physician [CONS] Stat Comment: Dr. Arbeu spoke with Dr. Carrasquillo @ [phone] Consulting Provider: SIDRA CARRASQUILLO Physician Instructions: Reason For Exam: Palpitation, defibrillator discharge Primary care physician: FINISHER DENTURE Hospitalization Reason for admission: ICD shock Condition: Stable Pertinent studies: Device interrogation Hospital course: The patient is a 64 year old male with a past medical history of CAD s/p CABG (2009), bioprosthetic MV replacement (2019 s/p multiple repairs), ICMP, AICD in situ, atrial fibrillation, anticoagulated with coumadin, HTN, HLP, PAD, DM presented for evaluation following AICD shock. The shock knocked him down to the ground, however, pt denies any loss of consciousness. --Defibrillator discharge --Ischemic cardiomyopathy, Chronic , EF 20-25% --Automatic implantable cardioverter-defibrillator in situ --CAD (coronary artery disease) s/p coronary artery bypass graft --H/O mitral valve replacement --Atrial fibrillation, Anticoagulated on Coumadin --Hypertension --Diabetes --PVD (peripheral vascular disease) --left knee pain Plan: -resume home meds -Device interrogation revealed one episode of monomorphic ventricular tachycardia which was appropriately treated with AICD shock. - initiate Toprol XL , Resume coumadin Cont observation on telemetry overnight. Patient was observed overnight and did not have any issues. Cardiology saw the patient and recommend to continue Toprol. Disposition: DC-01 TO HOME OR SELFCARE Time spent for discharge: 34 minutes - Discharge Diagnoses (1) Defibrillator discharge Status: Acute (2) Anticoagulated on Coumadin Status: Chronic (3) Atrial fibrillation Status: Chronic (4) Automatic implantable cardioverter-defibrillator in situ Status: Chronic (5) CAD (coronary artery disease) Status: Chronic (6) Diabetes Status: Chronic (7) H/O mitral valve replacement Status: Chronic (8) History of coronary artery bypass graft Status: Chronic (9) Ischemic cardiomyopathy Status: Chronic (10) PVD (peripheral vascular disease) Status: Chronic (11) Gout flare Status: Acute Core Measure Documentation - Palliative Care Palliative Care/ Comfort Measures: Not Applicable - Core Measures Any of the following diagnoses?: none Exam - Physical Exam Narrative exam: Not in cardiopulmonary distress. The patient appeared well nourished and normally developed. Vital signs as documented. Head exam is unremarkable. No scleral icterus . Neck is without jugular venous distension, thyromegaly, or carotid bruits. Lungs are clear to auscultation. Cardiac exam reveals regular rate and Rhythm. Abdominal exam reveals normal bowel sounds, nontender, no organomegaly. Extremities are nonedematous and both femoral and pedal pulses are normal. TALENT SOURCER: Alert and oriented 3. No focal weakness. - Constitutional Vitals: Temp Pulse Resp BP Pulse Ox 98.4 F 78 16 132/74 98 02/18/20 08:35 02/18/20 09:54 02/18/20 09:54 02/18/20 09:54 02/18/20 08:35 Plan Activity: no restrictions Weight Bearing Status: Full Weight Bearing Diet: low cholesterol Follow up with: PRIMARY CAREMD [Primary Care Provider] - 3-5 Days Forms: Warfarin Discharge Instruction Prescriptions: Metoprolol Xl [Metoprolol SUCCINATE ER TAB] 100 mg PO QDAY #30 tablet
[2020-02-18] MEDS ORDERED: COLCHICINE 0.6 MG CAP PO SCH (11:00)
[2020-02-18 12:54] VITALS: BP 141/82
== END 2020-02-18 14:08 | disposition home or self-care (01) | DRG 309 ==
LOC: ED 19:39 → CC1 22:19 → 4A 02-17 10:31
PROVIDERS: ADMIT Internal Medicine; ATTEND Internal Medicine
PROC: 4B02XTZ Measurement of Cardiac Defibrillator, External Approach (ICD-10-PCS; principal; 2020-02-17)
DX: T82.191A Other mechanical complication of cardiac pulse generator (battery), initial encounter (principal); I47.2 Ventricular tachycardia; I48.20 Chronic atrial fibrillation, unspecified; I11.0 Hypertensive heart disease with heart failure; I50.9 Heart failure, unspecified; Z79.4 Long term (current) use of insulin; Z79.82 Long term (current) use of aspirin; Z90.49 Acquired absence of other specified parts of digestive tract; E11.51 Type 2 diabetes mellitus with diabetic peripheral angiopathy without gangrene; E78.5 Hyperlipidemia, unspecified; I48.91 Unspecified atrial fibrillation; Z79.01 Long term (current) use of anticoagulants; I25.5 Ischemic cardiomyopathy; M10.9 Gout, unspecified; Y83.8 Other surgical procedures as the cause of abnormal reaction of the patient, or of later complication, without mention of misadventure at the time of the procedure; Y92.89 Other specified places as the place of occurrence of the external cause
CPT/HCPCS: 36415; 71045; 80048; 80076; 82550; 82553; 82962; 83735; 83880; 84443; 84484; 85025; 85610; 85730; 93005; G0378; J0282; J1644; J2270; J7060